=== PATIENT | female | born 1945 | race Two or more races ===

== ENCOUNTER 2022-01-17 09:43 | Outpatient (CLI) | payer OTHER ==
[~2022-01-17] VITALS: Ht 170.2 cm; Wt 99.8 kg
== END 2022-01-17 09:44 | disposition home or self-care (01) ==
LOC: LAB 09:43
PROVIDERS: ATTEND Orthopaedic Surgery
DX: D64.9 Anemia, unspecified (principal); E88.9 Metabolic disorder, unspecified; D68.8 Other specified coagulation defects; N39.0 Urinary tract infection, site not specified; A49.02 Methicillin resistant Staphylococcus aureus infection, unspecified site; E11.9 Type 2 diabetes mellitus without complications; I10 Essential (primary) hypertension; I49.9 Cardiac arrhythmia, unspecified; Z76.89 Persons encountering health services in other specified circumstances; M25.551 Pain in right hip; M25.552 Pain in left hip; M17.0 Bilateral primary osteoarthritis of knee

== ENCOUNTER → 2022-01-17 | Outpatient (CLI) | payer OTHER | END | disposition home or self-care (01) | LOC: NUCLEAR 11:46 | PROVIDERS: ATTEND Orthopaedic Surgery | DX: M81.0 Age-related osteoporosis without current pathological fracture (principal) ==

== ENCOUNTER 2022-01-26 11:15 | Inpatient (IN) | payer OTHER ==
[2022-01-31] MEDS ORDERED: SYNTHROID75 MCG (08:41)
[2022-01-31] MEDS ORDERED: CELECOXIB200 MG (08:41)
[2022-01-31] MEDS ORDERED: GABAPENTIN100 M2 (08:42)
[2022-01-31] MEDS ORDERED: XARELTO10 M1 (08:42)
[2022-01-31] MEDS ORDERED: CANDESARTAN CILE4 MG (08:42)
== END 2022-02-03 12:09 | disposition home or self-care (01) | DRG 470 ==
LOC: SURH 01-31 06:00 → O/R 01-31 06:00 → SURG 01-31 07:00 → SURH 01-31 14:04
PROVIDERS: ADMIT Orthopaedic Surgery; ATTEND Orthopaedic Surgery
PROC: 0SRC0J9 Replacement of Right Knee Joint with Synthetic Substitute, Cemented, Open Approach (ICD-10-PCS; principal; 2022-01-31 07:00)
DX: M17.11 Unilateral primary osteoarthritis, right knee (principal); D62 Acute posthemorrhagic anemia

== ENCOUNTER 2022-07-04 08:51 | Outpatient (CLI) | payer OTHER ==
[~2022-07-04] VITALS: Ht 170.2 cm; Wt 99.8 kg
[~2022-07-04 08:51] MED LIST: CANDESARTAN CILE4 MG; CELECOXIB200 MG; GABAPENTIN100 M2; SYNTHROID75 MCG; XARELTO10 M1
== END 2022-07-04 09:08 | disposition home or self-care (01) ==
LOC: LAB 08:51
PROVIDERS: ATTEND Orthopaedic Surgery
DX: D64.89 Other specified anemias (principal); E88.89 Other specified metabolic disorders; D68.8 Other specified coagulation defects; N39.0 Urinary tract infection, site not specified; A49.02 Methicillin resistant Staphylococcus aureus infection, unspecified site; E11.9 Type 2 diabetes mellitus without complications; Z76.89 Persons encountering health services in other specified circumstances; I49.9 Cardiac arrhythmia, unspecified; I10 Essential (primary) hypertension

== ENCOUNTER 2022-07-13 10:45 | Inpatient (IN) | payer OTHER ==
[~2022-07-13] VITALS: Ht 170.2 cm; Wt 100.2 kg
[2022-07-18] MEDS ORDERED: GABAPENTIN100 M2 (10:21)
[2022-07-18] MEDS ORDERED: XARELTO10 M1 (10:21)
== END 2022-07-21 12:29 | disposition designated cancer center or children's hospital (05) | DRG 470 ==
LOC: SURH 10:45 → O/R 07-18 05:33 → SURH 07-18 07:00 → SURG 07-18 16:22
PROVIDERS: ADMIT Orthopaedic Surgery; ATTEND Orthopaedic Surgery
PROC: 0SRD069 Replacement of Left Knee Joint with Oxidized Zirconium on Polyethylene Synthetic Substitute, Cemented, Open Approach (ICD-10-PCS; principal; 2022-07-18 07:00)
DX: M17.12 Unilateral primary osteoarthritis, left knee (principal); M25.862 Other specified joint disorders, left knee; D64.89 Other specified anemias; I10 Essential (primary) hypertension; E03.9 Hypothyroidism, unspecified; Z96.651 Presence of right artificial knee joint